=== PATIENT | male | born 1990 | race Caucasian/White ===

== ENCOUNTER 2017-11-06 13:00 | Emergency (ER) | payer SELFPAY ==
[~2017-11-06] VITALS: Ht 182.9 cm; Wt 129.3 kg
[2017-11-06 13:21] VITALS: BP 145/81
== END 2017-11-06 13:38 | disposition home or self-care (01) ==
LOC: ER 13:05
DX: Z76.0 Encounter for issue of repeat prescription (principal); J45.901 Unspecified asthma with (acute) exacerbation; F17.200 Nicotine dependence, unspecified, uncomplicated; Z88.0 Allergy status to penicillin
CPT/HCPCS: 99283; A4606; Z7610

== ENCOUNTER 2017-12-05 22:01 | Emergency (ER) | payer BC ==
[~2017-12-05] VITALS: Ht 182.9 cm; Wt 122.5 kg
[2017-12-05 22:40] VITALS: BP 138/63
== END 2017-12-05 23:47 | disposition left against medical advice (07) ==
LOC: ER 22:13
DX: Z53.21 Procedure and treatment not carried out due to patient leaving prior to being seen by health care provider (principal)
CPT/HCPCS: A4606; Z7610

== ENCOUNTER 2018-10-14 13:32 | Emergency (ER) | payer SELFPAY ==
[~2018-10-14] VITALS: Ht 182.9 cm; Wt 113.9 kg
--- NOTE | 2018-10-14 13:48 | NUR ---
FROM HOME, GLF, SLIPPED ON THE STAIRS HIT HIS TALE BONE, 03/10 PS. PT AOX4, AMB, RR EVEN AND UNLABORED, VSS. SKIN INTACT AND NO ACUTE DISTRESS NOTED. NO OTHER COMPLAINTS AT THIS TIME. READY FOR EVAL.
[2018-10-14] MEDS ORDERED: IBUPROFEN 400 MG TABLET PO ONE (14:00)
[2018-10-14] MEDS ORDERED: predniSONE 20 MG TABLET PO ONE (14:00)
--- NOTE | 2018-10-14 14:01 | NUR ---
PT TAKEN TO RADIOLOGY VIA
[2018-10-14] MEDS ORDERED: IBUPROFEN 400 MG TABLET ONE (14:05)
[2018-10-14] MEDS ORDERED: predniSONE 20 MG TABLET ONE (14:05)
--- NOTE | 2018-10-14 14:14 | NUR ---
PT BACK FROM RADIOLOGY. TOLERATED WELL. MEDS GIVEN
--- NOTE | 2018-10-14 14:45 | NUR ---
Patient discharged to home in stable condition. Written and verbal after care instructions given. Patient verbalizes understanding of instruction.
[2018-10-14 15:13] VITALS: BP 147/84
== END 2018-10-14 14:45 | disposition home or self-care (01) ==
LOC: ER 13:34
DX: S39.82XA Other specified injuries of lower back, initial encounter (principal); J45.909 Unspecified asthma, uncomplicated; F12.90 Cannabis use, unspecified, uncomplicated; Z88.0 Allergy status to penicillin; W01.0XXA Fall on same level from slipping, tripping and stumbling without subsequent striking against object, initial encounter; Y93.89 Activity, other specified; Y92.89 Other specified places as the place of occurrence of the external cause; Y99.8 Other external cause status
CPT/HCPCS: 72110; 72220; 99283; A4606; J7512; Z7610

== ENCOUNTER 2019-04-14 12:21 | Emergency (ER) | payer SELFPAY ==
[~2019-04-14] VITALS: Ht 182.9 cm; Wt 107.5 kg
[2019-04-14 12:23] VITALS: BP 148/70
--- NOTE | 2019-04-14 12:44 | NUR ---
Patient discharged to home in stable condition. Written and verbal after care instructions given. Patient verbalizes understanding of instruction.
== END 2019-04-14 12:45 | disposition home or self-care (01) ==
LOC: ER 12:21
DX: R19.7 Diarrhea, unspecified (principal); J45.909 Unspecified asthma, uncomplicated; F12.10 Cannabis abuse, uncomplicated; F10.10 Alcohol abuse, uncomplicated; F17.200 Nicotine dependence, unspecified, uncomplicated; Y90.9 Presence of alcohol in blood, level not specified; Z88.0 Allergy status to penicillin
CPT/HCPCS: Z7502